=== PATIENT | female | born 1995 | race Caucasian/White ===

== ENCOUNTER 2023-06-27 14:15 | Outpatient (RCR) | payer OTHER, SELFPAY ==
[2023-06-28] MEDS: RHO(D) IMMUNE GLOBULIN 300 MCG/2 ML SYRINGE IM (10:30)
== END 2023-09-25 23:59 | disposition home or self-care (01) ==
LOC: ANHLAB 14:15
PROVIDERS: PCP Internal Medicine; Visit Provider Obstetrics & Gynecology
DX: Z29.13 Encounter for prophylactic Rho(D) immune globulin (principal); O26.859 Spotting complicating pregnancy, unspecified trimester; Z3A.00 Weeks of gestation of pregnancy not specified
CPT/HCPCS: 36415; 85461; 86850; 86900; 86901; 90384; 96372; J2790

== ENCOUNTER 2023-10-07 08:12 | Outpatient (RCR) | payer OTHER, SELFPAY ==
[2023-10-07 09:45] LABS: Hematocrit 31.2 % (37.0-47.0); Hemoglobin 10.8 g/dL (12.0-15.0)
[2023-10-07 10:38] LABS: HIV 1/2 Ab P24 Ag Result Negative (Negative)
[2023-10-07 15:49] LABS: Glucose 1 Hour PP 50gm Dose 105 mg/dL
[2023-10-07] MEDS: RHO(D) IMMUNE GLOBULIN 300 MCG/2 ML SYRINGE IM (16:53)
== END 2024-01-05 23:59 | disposition home or self-care (01) ==
LOC: ANHLAB 08:12
PROVIDERS: PCP Internal Medicine; Visit Provider Obstetrics & Gynecology
DX: Z11.4 Encounter for screening for human immunodeficiency virus [HIV] (principal); Z29.13 Encounter for prophylactic Rho(D) immune globulin; O36.0130 Maternal care for anti-D [Rh] antibodies, third trimester, not applicable or unspecified; Z3A.00 Weeks of gestation of pregnancy not specified
CPT/HCPCS: 36415; 82947; 85014; 85018; 85461; 86703; 86850; 86880; 86900; 86901; 86902; 90384; 96372; G0432; J2790

== ENCOUNTER 2023-12-13 09:25 | Inpatient (IN) | payer OTHER, SELFPAY ==
[2023-12-13] VITALS (119 sets, daily range): BP systolic 94–145; BP diastolic 54–121; PULSE 26–199; RESP 16; TEMP 36.4–37.1; O2SAT 82–100; BMI 28.9
[2023-12-13 12:35] LABS: Basophils Percent Auto 0.1 % (0.2-1.2); Hematocrit 33.6 % (37.0-47.0); Hemoglobin 11.6 g/dL (12.0-15.0); Immature Granulocyte Absolute 0.06 K/mm3 (0.00-0.031); Immature Granulocyte Percent A 0.6 % (0-0.5); Lymphocytes Absolute Auto 1.14 K/mm3 (0.9-3.2); Lymphocytes Percent Auto 11.5 % (18.3-44.2); Mean Corpuscular HGB Conc 34.5 g/dl (32-36); Mean Corpuscular Hemoglobin 31.9 pg (26-34); Mean Corpuscular Volume 92.3 fl (80-100); Mean Platelet Volume 10.7 fl (7.4-10.4); Monocytes Absolute Auto 0.6 K/mm3 (0.1-0.6); Monocytes Percent Auto 6.1 % (2.6-8.5); Neutrophils Absolute Auto 8.1 K/mm3 (1.3-6.7); Neutrophils Percent Auto 81.7 % (45.5-73.1); Platelet Count Result 172 k/mm3 (150-375); Red Blood Count 3.64 M/mm3 (4.2-5.4); Red Cell Distribution Width 12.9 % (11.5-14.5); White Blood Count 9.9 K/mm3 (4.5-10.0)
[2023-12-13] MEDS: LACTATED RINGERS 500 ML 999 ML IV CONT (12:50)
[2023-12-13] MEDS: ONDANSETRON INJ 4 MG/2 ML VIAL IV PUSH (12:50)
--- NOTE | 2023-12-13 13:20 | WPDANESEPP ---
Anes - Eval Pre Procedure Procedure: labor epidural Date/Time: 12/13/23 13:20 Surgeon: Sourav Preop Diagnosis: Pain during labor Pre Op Diagnosis: IOL Patient Data Age: 28 Gender: F Height: 1.78 m Weight: 91.5 kg Last Vital Signs O2 Del Method Room Air 12/13/23 12:42 Allergies Allergy/AdvReac Type Severity Reaction Status Date / Time No Known Allergies Allergy Verified 12/02/23 14:18 Home Medications Medication Instructions Recorded Confirmed Type vits no.126-ferrous fum 1 tablet PO DAILY 12/02/23 12/02/23 History 28 mg iron-folic acid 800 mcg tablet (Classic ) venlafaxine 75 mg tablet 75 mg PO DAILY 12/02/23 12/02/23 History Laboratory Tests 12/13/23 12:30 WBC 9.9 K/mm3 (4.5-10.0) RBC 3.64 L M/mm3 (4.2-5.4) Hgb 11.6 L g/dL (12.0-15.0) Hct 33.6 L % (37.0-47.0) MCV 92.3 fl (80-100) MCH 31.9 pg (26-34) MCHC 34.5 g/dl (32-36) RDW 12.9 % (11.5-14.5) Plt Count 172 k/mm3 (150-375) MPV 10.7 H fl (7.4-10.4) Immature Gran % (Auto) 0.6 H % (0-0.5) Neut % (Auto) 81.7 H % (45.5-73.1) Lymph % (Auto) 11.5 L % (18.3-44.2) [place] % (Auto) 6.1 % (2.6-8.5) Eos % (Auto) 0.0 % (0-4.4) Baso % (Auto) 0.1 L % (0.2-1.2) Lymph # (Auto) 1.14 K/mm3 (0.9-3.2) [place] # (Auto) 0.6 K/mm3 (0.1-0.6) Eos # (Auto) 0.0 K/mm3 (0-0.3) Baso # (Auto) 0.0 K/mm3 (0.0-0.1) Abs Immat Gran (auto) 0.06 H K/mm3 (0.00-0.031) Absolute Neuts (auto) 8.1 H K/mm3 (1.3-6.7) Absolute Nucleated RBC 0.000 K/mm3 (0.0-0.012) Nucleated RBC % 0.0 % (0.0-0.2) RPR Pending HIV 1&2 Ab/P24 Ag 4thGn Pending Blood Type O Negative Antibody Screen Pending Patient hx anesthesia problems: none Family hx anesthesia problems: none Results Review: All pre-operative results and documents have been reviewed as part of the pre-operative evaluation. [facility] Family History Family History Father Thyroid cancer Grandparent Diabetes mellitus Leukemia Grandparent Testicular cancer Diabetes mellitus Social History Social History Smoking status: Never smoker Substance use: never Do You Feel Safe in your Home?: Yes Lack of Transportation: No Lack of Food: Never True Current Housing: I Have Housing Concerned About Future Housing: No Difficulty Paying Gas/Electric Bills: No Difficulty Paying for Meds: No Currently Unemployed: No Education: Master's Degree or Higher Difficulty w/ Childcare or Family Care: No Spiritual care concerns: No Exam Day of Procedure 12/13/23 13:20 Patient weight: normal Heart: regular rate and rhythm Lungs: normal air movement Airway: Mallampati scale class II Neurological: alert and oriented
[2023-12-13 13:25] LABS: HIV 1/2 Ab P24 Ag Result Negative (Negative)
[2023-12-13] MEDS: LACTATED RINGERS 1,000 ML 125 ML IV CONT (15:33)
[2023-12-13] MEDS: OXYTOCIN 30 UNITS/NS 500 ML 30 UNITS/500 ML BAG IV CONT (17:13)
--- NOTE | 2023-12-13 18:31 | WPDOBADMIT ---
Obstetrics - Admit Note Admission Note: record reviewed. No pertinent additions to the history and/or any subsequent changes in the physical findings that are not consistent with the expected course of the were found. Patient admitted for contractions, SVE 4cm. Expectant management Additions to the history and/or subsequent changes in the physical findings follow. None.
--- NOTE | 2023-12-13 18:32 | PM.OBPRVD ---
OB - Vaginal Delivery Note Procedure Delivery date: 12/13/23 Delivery augmentation: Pitocin Delivery monitor: External FHT and External Uterine Route of delivery: Episiotomy description: None Laceration Description: Perineal - 2nd Degree Delivery repair: vicryl Specimen: No Quantitative Blood Loss (ml): 100 Anesthesia type: Epidural Disposition: Floor Complications: No immediate complications Narrative: See H&P and notes for details on patient's admission and labor. She progressed to complete cervical dilation and at the appropriate time began pushing. With adequate expulsive efforts by the mother, the baby's head was delivered without difficulty. Nuchal cord was present x2 and was easily reduced. The baby's right shoulder was anterior and delivered under the pubic symphysis without difficulty. The posterior shoulder and the rest of the baby delivered without difficulty. The umbilical cord was doubly clamped and cut after 45 seconds of delayed cord clamping. Care of the was then assumed by the nursing staff. Baby Date of : 12/13/23 Weeks of gestation at delivery: 38 gender: Female Weight (pounds): 7 Weight (ounces): 7 presentation: vertex position: Left Occiput Anterior Placenta delivery description: Expressed Cord Vessel Description: 3 Vessels, Nuchal Cord (x2) and Reduced
[2023-12-13] MEDS: OXYTOCIN 30 UNITS/NS 500 ML 30 UNITS/500 ML BAG 125 UNITS IV CONT (18:47)
[2023-12-13] MEDS: ACETAMINOPHEN 325 MG TABLET 650 MG PO (20:31)
[2023-12-13] MEDS: IBUPROFEN 600 MG TABLET PO (20:32)
[2023-12-13] MEDS: BENZOCAINE 20% AER SPR (*SP) 56 GM CAN 1 SPRAY TOPICAL (20:33)
[2023-12-13] MEDS: WITCH HAZEL 40 PADS 1 PAD TOPICAL (20:33)
[2023-12-14] MEDS: IBUPROFEN 600 MG TABLET PO ×3 (01:57→16:53)
[2023-12-14] MEDS: ACETAMINOPHEN 325 MG TABLET 650 MG PO ×3 (01:58→16:52)
[2023-12-14 02:03] VITALS: BP 122/77; PULSE 66; RESP 16; TEMP 37.1; O2SAT 100
[2023-12-14 04:58] LABS: Hematocrit 27.6 % (37.0-47.0); Hemoglobin 9.4 g/dL (12.0-15.0)
[2023-12-14 08:00] VITALS: BP 106/58; PULSE 78; RESP 18; TEMP 36.7
--- NOTE | 2023-12-14 09:54 | WPDANLDPN2 ---
Anes-Prog Note L&D Date/Time: 12/14/23 09:54 Comfortable throughout: labor and delivery Neuraxial method: epidural Epidural/Spinal procedure site: clean & non-tender Neuro status: Neuro function grossly intact. Cardiovascular status: normal Respiratory status: normal Airway patency: baseline Mental status: baseline Post-Op hydration status: normal Vital Signs: Last Vital Signs Temp 36.7 C 12/14/23 08:00 Pulse 78 12/14/23 08:00 Resp 18 12/14/23 08:00 BP 106/58 L 12/14/23 08:00 Pulse Ox 100 12/14/23 02:03 O2 Del Method Room Air 12/13/23 12:42 Pain score (VAS): 2/10 I/O: Intake & Output 12/13/23 12/14/23 12/14/23 23:59 07:59 15:59 Intake Total 100 700 Output Total 500 Balance -400 700 Post-procedural complaints: none Patient feedback: Patient satisfied with anesthetic care.
[2023-12-14] MEDS: POLYSACCHARIDE IRON COMPLEX 150 MG CAPSULE PO ×2 (09:55→16:54)
[2023-12-14] MEDS: DOCUSATE SODIUM 100 MG CAPSULE PO ×2 (09:56→16:54)
[2023-12-14] MEDS: MULTIVIT/MIN/PREN/FOL AC/IRON TABLET 1 TAB PO (09:56)
--- NOTE | 2023-12-14 10:11 | PM.OBPNVD ---
OB - PN: Subj Subjective Date/time seen: 12/14/23 10:11 Patient comments: no complaints, pain well controlled, incisional pain, tolerating diet and flatus present OB - PN: Obj Data Labs 12/14/23 04:28 Labs: Laboratory Results - last 24 hr 12/13/23 12/14/23 12:30 04:28 WBC 9.9 RBC 3.64 L Hgb 11.6 L 9.4 L Hct 33.6 L 27.6 L MCV 92.3 MCH 31.9 MCHC 34.5 RDW 12.9 Plt Count 172 MPV 10.7 H Immature Gran % (Auto) 0.6 H Neut % (Auto) 81.7 H Lymph % (Auto) 11.5 L [place] % (Auto) 6.1 Eos % (Auto) 0.0 Baso % (Auto) 0.1 L Lymph # (Auto) 1.14 [place] # (Auto) 0.6 Eos # (Auto) 0.0 Baso # (Auto) 0.0 Abs Immat Gran (auto) 0.06 H Absolute Neuts (auto) 8.1 H Absolute Nucleated RBC 0.000 Nucleated RBC % 0.0 HIV 1&2 Ab/P24 Ag 4thGn Negative Blood Type O Negative Antibody Screen Positive Antibody Identification Passive Due to RH Imm Glob Antigen Identification Cancelled LOLI, IgG Interpret Negative LOLI, Poly Interpret Not Performed LOLI, Complement Interp Negative OB - PN A/P Plan day: 1 Plan: routine care Comments: No problems, routine care Time Spent With Patient Time: Total time spent is greater than 50% in coordination of care (as documented) at patient's floor/unit and/or counseling patient: Exam Const: General: comfortable, no acute distress and alert Resp: Effort & Inspection: normal respiratory effort Auscultation: no crackles, no rales and no rhonchi Cardio: Rate: regular rate Heart sounds: no click, no murmurs and no rubs GI: Inspection: non-distended GI Palp: No Tenderness to palpation present (GI) Auscultation: normal bowel sounds Other: Incision - CDI Extrem: General: normal to inspection, no pedal edema and no calf tenderness
[2023-12-14 12:30] VITALS: BP 98/57; PULSE 76; RESP 18; TEMP 36.5
[2023-12-14] MEDS: DIBUCAINE 1% OINTMENT 30 GM TUBE 1 APPLIC TOPICAL (17:01)
[2023-12-14 19:30] VITALS: BP 119/81; PULSE 83; RESP 16; TEMP 36.8; O2SAT 100
[2023-12-15 07:11] LABS: Rapid Plasma Reagin Non-Reactive (NonReactive)
[2023-12-15 07:40] VITALS: BP 113/86; PULSE 80; RESP 16; TEMP 36.4; O2SAT 100
--- NOTE | 2023-12-15 10:11 | PM.OBPNVD ---
OB - PN: Subj Subjective Date/time seen: 12/15/23 10:11 Interval history: PPD#2 Doing well, skin to skin with baby Some soreness, pain overall well controlled Bleeding minimal Empyting bladder , working on latching OB - PN: Obj Data Labs 12/14/23 04:28 Labs: Laboratory Results - last 24 hr 12/13/23 12:30 RPR Non-reactive OB - PN A/P Assessment and Plan (1) (spontaneous vaginal delivery): Code(s): O80 - Encounter for full-term uncomplicated delivery Status: Acute Plan day: 2 Plan: routine care and discharge home Time Spent With Patient Time: Total time spent is greater than 50% in coordination of care (as documented) at patient's floor/unit and/or counseling patient: Review of Systems Review of Systems: All systems reviewed & are unremarkable except as noted in HPI and below Exam Const: General: comfortable and no acute distress Orientation/consciousness: patient oriented x3 Resp: Effort & Inspection: normal respiratory effort
--- NOTE | 2023-12-15 10:18 | PM.OBDSVD ---
DS: Admitting Diagnosis Discharge Date 12/15/23 Admitting Diagnosis labor DS: Discharge Diagnosis Discharge Diagnosis (1) (spontaneous vaginal delivery): Code(s): O80 - Encounter for full-term uncomplicated delivery Status: Acute OB - DS: Summary OB Procedures : None OB Procedures Intrapartum: Spontaneous Vag Delivery OB Procedures: : None Peripartum Data Laceration Description: Perineal - 2nd Degree Episiotomy description: None Time Spent with Patient Time attestation: Total time spent providing and/or coordinating discharge services: DS: Data Data Completed and Pending Labs on day of discharge: Labs from last 24 hours 12/13/23 12:30 RPR Non-reactive Discharge Plan Discharge Attending physician on discharge: Aditya Benjamin Discharging Clinician: Aditya Benjamin Patient Disposition: Home, Self-Care Activity: may shower, as tolerated and pelvic rest Diet: as tolerated Patient Instructions: Antibiotic Form Stand Alone Forms: General Discharge Information Follow-up/Referrals: Aditya Benjamin MD [Physician] - 4 Weeks Discharge Medications: New ibuprofen 600 mg Tablet 600 mg PO Q6H PRN (Reason: Cramping) Qty: 30 0RF docusate sodium 100 mg Capsule 100 mg PO BID PRN (Reason: Constipation) Qty: 60 0RF Continued venlafaxine 75 mg Tablet 75 mg PO DAILY Classic 28 mg iron- 800 mcg Tablet 1 tablet PO DAILY Date of admission: 12/13/23 09:25 Primary Care Provider: Zoe,Balaji Dunbar Admitting Provider: Aditya Benjamin Attending physician on admission: Aditya Benjamin Condition: Stable
[2023-12-16 09:48] VITALS: BP 127/82; PULSE 93; RESP 18; TEMP 37.2; O2SAT 100
== END 2023-12-15 13:30 | disposition home or self-care (01) | DRG 807 ==
LOC: ANHLDR 11:59 → ANHOB2 22:23
PROVIDERS: Admitting Provider Obstetrics & Gynecology; PCP Internal Medicine; Visit Provider Obstetrics & Gynecology
DX: O69.81X0 Labor and delivery complicated by cord around neck, without compression, not applicable or unspecified (principal); Z37.0 Single live birth; Z3A.39 39 weeks gestation of pregnancy; O70.1 Second degree perineal laceration during delivery
CPT/HCPCS: 36415; 85014; 85018; 85025; 86592; 86703; 86850; 86880; 86900; 86901; 86902; A9270; G0432; J2405; J2590; J2795; J7120

== ENCOUNTER 2024-05-08 09:05 | Outpatient (CLI) | payer OTHER, SELFPAY ==
[2024-05-08 09:26] LABS: Basophils Percent Auto 0.2 % (0.2-1.2); Hematocrit 38.4 % (37.0-47.0); Immature Granulocyte Absolute 0.01 K/mm3 (0.00-0.031); Immature Granulocyte Percent A 0.2 % (0-0.5); Lymphocytes Absolute Auto 1.54 K/mm3 (0.9-3.2); Lymphocytes Percent Auto 32.1 % (18.3-44.2); Mean Corpuscular HGB Conc 33.9 g/dl (32-36); Mean Corpuscular Volume 88.7 fl (80-100); Monocytes Absolute Auto 0.4 K/mm3 (0.1-0.6); Monocytes Percent Auto 8.1 % (2.6-8.5); Neutrophils Absolute Auto 2.9 K/mm3 (1.3-6.7); Neutrophils Percent Auto 59.4 % (45.5-73.1); Platelet Count Result 207 k/mm3 (150-375); Red Blood Count 4.33 M/mm3 (4.2-5.4); Red Cell Distribution Width 11.9 % (11.5-14.5); White Blood Count 4.8 K/mm3 (4.5-10.0)
[2024-05-08 09:39] LABS: Anion Gap 2 mmol/L (4-12); Blood Urea Nitrogen 17 mg/dL (7-17); Calcium 9.2 mg/dL (8.4-10.2); Carbon Dioxide 29 mmol/L (22-30); Chloride 109 mmol/L (98-107); Estimated Glomerular Filt Rate > 60; Glucose 94 mg/dL (65-110); Potassium 4.7 mmol/L (3.4-5.0); Sodium 140 mmol/L (137-145)
[2024-05-08 10:11] LABS: Thyroid Stimulating Hormone 0.992 uIU/mL (0.465-4.680)
== END 2024-05-08 09:06 | disposition home or self-care (01) ==
LOC: ANHLAB 09:06
PROVIDERS: PCP Physician Assistant Medical; Visit Provider Physician Assistant Medical
DX: R51.9 Headache, unspecified (principal); D64.9 Anemia, unspecified
CPT/HCPCS: 36415; 80048; 84443; 85025